=== PATIENT | female | born 1965 | race African-American/Black ===

== ENCOUNTER → 2016-07-30 | Outpatient (CLI) | payer OTHER ==
[2015-06-22 17:43] VITALS: BP 128/76
[~2016-07-30] MED LIST: ALBU8.5H8 IH; BUDE10.2 IH; BUSP15TA PO; CALC-157 PO; CALC1TAB PO; CETI10TA22 PO; CLON1TAB PO; DILT120C80 PO; ESCI20TA PO; FERR325C PO; IPRA4AER IH; LEVO150T5 PO; MAGN400T3 PO; MELO15TA6 PO; MOME17SP NS; MONT10TA9 PO; MORP15TA80 PO; OXYC-328 PO; PANT40TA3 PO; POTA20TA12 PO; TIZA4CAP3 PO
--- NOTE | 2016-07-30 15:51 | RAD ---
Indication: Dyspnea. Time of exam 1543 hours. Correlation is made with prior study from 04/01/2016. FINDINGS: The heart size is normal. The lungs are clear. No pleural effusion or pneumothorax is identified. The pulmonary vascularity is normal. IMPRESSION: No acute abnormality detected.
== END | disposition home or self-care (01) ==
LOC: DXRADRC 15:39
PROVIDERS: ATTEND Physician Assistant
DX: R06.00 Dyspnea, unspecified (principal); Z96.659 Presence of unspecified artificial knee joint
CPT/HCPCS: 71020

== ENCOUNTER → 2016-11-17 | Outpatient (CLI) | payer OTHER ==
[2015-06-22 17:43] VITALS: BP 128/76
[~2016-11-17] MED LIST changes: -ESCI20TA PO; +ESCITALOPRAM OX20 MG PO
--- NOTE | 2016-11-17 16:02 | RAD ---
Exam performed: X-ray lumbar spine. History: History of lumbar surgery in 2011, back pain, no injury. Date of service: 11/17/16. Comparison: None available Findings: Transitional anatomy at the lumbosacral junction. 5 nonrib-bearing vertebral bodies are identified. There is grade 1 anterolisthesis of L4 over L5, the remainder sagittal alignment is preserved. Vertebral body heights are maintained. Narrowing of L4-5 disc space with mild arthritic spurring. No compression fracture. No prevertebral soft tissue swelling. Extensive scattered stool throughout the colon. Bilateral hip arthroplasty. Impression: Degenerative disc disease at L4-5 level with mild spondylotic changes. No acute abnormality seen.
== END | disposition home or self-care (01) ==
LOC: DXRADRC 12:52
PROVIDERS: ATTEND Family Medicine
DX: M51.36 Other intervertebral disc degeneration, lumbar region (principal); M47.896 Other spondylosis, lumbar region; Z98.890 Other specified postprocedural states; Z96.641 Presence of right artificial hip joint; Z96.642 Presence of left artificial hip joint
CPT/HCPCS: 72100

== ENCOUNTER → 2017-07-28 | Outpatient (CLI) | payer OTHER ==
[2015-06-22 17:43] VITALS: BP 128/76
--- NOTE | 2017-07-28 17:06 | RAD ---
EXAM: Abdomen, 2 views. HISTORY: Pain. COMPARISON: None. FINDINGS: Frontal upright and supine views of the abdomen are obtained. There is nonspecific air-filled loops of bowel within the right abdomen. There is gas and stool within the colon. There is no transition point to suggest obstruction. There is no free air. There are bilateral hip arthroplasties. IMPRESSION: Nonspecific bowel gas pattern, without evidence of obstruction. Electronically signed by: Dianne Patterson MD (07/28/2017 5:03 PM) [facility]
== END | disposition home or self-care (01) ==
LOC: RAD 16:17
PROVIDERS: ATTEND Physician Assistant
DX: I10 Essential (primary) hypertension (principal)
CPT/HCPCS: 74021

== ENCOUNTER → 2017-08-20 | Outpatient (CLI) | payer OTHER ==
[2015-06-22 17:43] VITALS: BP 128/76
[~2017-08-20] MED LIST changes: +IOHEXOL 240 MG/ML 50ML VIAL. ONE
[2017-08-20] MEDS: IOHEXOL 300 MG/ML 75 ML VIAL. IV ONE (15:07)
--- NOTE | 2017-08-20 15:41 | RAD ---
CT abdomen and pelvis with contrast History: Abdominal pain, diarrhea, nausea, history of lymphoma of the right neck Technique: After the administration of oral and intravenous contrast, CT imaging was performed of the abdomen and pelvis. Multiplanar images are reviewed. Exposure: One or more of the following individualized dose reduction techniques were utilized for this examination: 1. Automated exposure control 2. Adjustment of the mA and/or kV according to patient size 3. Use of iterative reconstruction technique. Contrast: 75 cc Omnipaque 300 Comparison: None Findings: There is prominent artifact in the pelvis created by bilateral hip arthroplasties. There is a very large (14.1 cm transverse by 11.4 cm AP by 14.3 cm cc) cystic collection in the central and left pelvis extending into the abdomen with inferior extent to the region of urinary bladder although urinary bladder is probably mostly decompressed as suggested on sagittal images. There is some soft tissue density along the medial margin of the collection. In the right pelvis, there is more solid-appearing density probably component of the uterus although more masslike features extending posteriorly on the right. Bowel is not significantly dilated, some displacement of the sigmoid colon and anteriorly by cystic collection. There is also somewhat round density of the right adnexal region about 3.5 cm in size. There is no significant abnormality of the visualized lung bases. There is no significant focal abnormality of the liver, spleen, pancreas, adrenal glands. Both kidneys enhance, mild left hydronephrosis/pelvocaliectasis. Gallbladder is not seen. Common bile duct is estimated at about 0.9 cm. There is retained stool greatest of the right and transverse colon. There is degenerative disc disease with vacuum phenomenon L4-5, disc osteophyte complex and bulge at this level with probable leit-fl-grqokapt left lateral recess stenosis in combination with facet degenerative change. There is also probable at least mild neural foramina compromise bilaterally at L4-5 and on the left at L5-S1. Impression: 1. There is prominent artifact in the pelvis created by bilateral hip arthroplasties. There is a very large cystic collection of the central and left pelvis extending superiorly into the abdomen which extends to the region of the urinary bladder although believed to be separate from urinary bladder. Primary concern would be for cystic adnexal mass including cystadenoma/cystadenocarcinoma. There appears to be associated soft tissue density along the medial margin. In the right pelvis, there is soft tissue density which could be due to component of the uterus and fibroid although nonspecific. There is also somewhat round density in the right adnexal region. Pelvic ultrasound evaluation may be beneficial. There is very mild left hydronephrosis/pelvocaliectasis. Electronically signed by: Duc Cavazos MD (08/20/2017 3:38 PM) [id number]
--- NOTE | 2017-08-21 10:36 | RAD ---
DATE: 08/20/2017 EXAM: MAMMO RUSLAN SCREENING BILATERAL HISTORY: Routine screening COMPARISON: None available This study was interpreted with the benefit of Computerized Aided Detection (CAD). The breast parenchyma is primarily fatty replaced. Breast parenchyma level density A. FINDINGS: 2-D and 3-D tomosynthesis imaging was performed in CC and MLO projections. There is a nodule with a coarse calcification in the upper left breast compatible with a fibroadenoma. No suspicious breast densities or architectural distortion is evident. There are numerous benign type calcifications in both breasts. No suspicious microcalcifications are evident. IMPRESSION: There is no mammographic evidence of malignancy in either breast. BI-RADS CATEGORY: 2 BENIGN FINDING(S) RECOMMENDED FOLLOW-UP: 12M 12 MONTH FOLLOW-UP PQRS compliance statement: Patient information was entered into a reminder system with a target due date for the next mammogram. Mammography is a sensitive method for finding small breast cancers, but it does not detect them all and is not a substitute for careful clinical examination. A negative mammogram does not negate a clinically suspicious finding and should not result in delay in biopsying a clinically suspicious abnormality. "Our facility is accredited by the [employer] Mammography Program."
== END | disposition home or self-care (01) ==
LOC: MAMMO 13:40
PROVIDERS: ATTEND Physician Assistant
DX: Z12.31 Encounter for screening mammogram for malignant neoplasm of breast (principal); M51.36 Other intervertebral disc degeneration, lumbar region; M25.78 Osteophyte, vertebrae; N13.39 Other hydronephrosis; Z96.643 Presence of artificial hip joint, bilateral; Z85.72 Personal history of non-Hodgkin lymphomas
CPT/HCPCS: 74177; 77063; 77067; Q9967

== ENCOUNTER → 2019-03-18 | Outpatient (CLI) | payer MEDICARE ==
[2015-06-22 17:43] VITALS: BP 128/76
[~2019-03-18] MED LIST changes: +ALBU2.5V8 IH; -ALBU8.5H8 IH; -CETI10TA22 PO; +CETI10TA24 PO; -DILT120C80 PO; +DILT120C99 PO; -IOHEXOL 240 MG/ML 50ML VIAL. ONE; -MAGN400T3 PO; +MAGN400T5 PO; +MONT10TA80 PO; -MONT10TA9 PO; -OXYC-328 PO; +OXYC1TAB22 PO
--- NOTE | 2019-03-18 13:32 | RAD ---
Chest radiograph 03/18/2019 12:00 AM INDICATION: Dyspnea, lower chest pain COMPARISON: 07/30/2016 TECHNIQUE: Frontal and lateral views of the chest are provided. FINDINGS: The cardiomediastinal silhouette is within normal limits. There are no pleural effusions. There is no pulmonary vascular congestion. There is no pneumothorax. Bilateral infrahilar patchy interstitial changes are present with bronchial wall thickening. Consideration may be given for bronchitis. No significant osseous abnormality is identified. IMPRESSION: Constellation of findings may be seen with bronchitis. No focal airspace consolidation. Electronically signed by: Carole Soares MD (03/18/2019 1:29 PM) [facility] [place]
--- NOTE | 2019-03-18 13:46 | RAD ---
EXAM: Abdomen, 2 views. HISTORY: Right upper quadrant pain. COMPARISON: CT dated 08/20/2017. FINDINGS: Frontal upright and supine views of the abdomen are obtained. There is gqrb-nj-gjdavztj gas and stool within the colon. There is no evidence of bowel obstruction. There is no free air. There are bilateral hip arthroplasties. There are incidental congenitally nonfused sacral posterior elements. IMPRESSION: Moderate colonic gas and stool. Correlate for constipation. Electronically signed by: Dianne Patterson MD (03/18/2019 1:43 PM) [place] [id number]
== END | disposition home or self-care (01) ==
LOC: PMG 12:21
PROVIDERS: ATTEND Physician Assistant
DX: J98.09 Other diseases of bronchus, not elsewhere classified (principal); R10.11 Right upper quadrant pain; K59.00 Constipation, unspecified
CPT/HCPCS: 71046; 74019

== ENCOUNTER 2021-06-27 16:12 | Emergency (ER) | payer MEDICARE, OTHER ==
[~2021-06-27] VITALS: Ht 162.6 cm; Wt 104.5 kg
[~2021-06-27 16:12] MED LIST changes: -CETI10TA24 PO; +CETI10TA74 PO; +MAGN400T48 PO; -MAGN400T5 PO; -MOME17SP NS; +MOME17SP5 NS
[2021-06-27 16:34] VITALS: BP 128/76
[2021-06-27] MEDS ORDERED: IOHEXOL 350 MG/ML 100 ML VIAL. IV ONE (17:15)
[2021-06-27 17:31] LABS: BASO # 0.1 x10^3/uL (0.0-0.2); BASO % 2 % (0-3); EOS # 0.4 x10^3/uL (0.0-0.7); EOS % 7 % (0-3); HEMATOCRIT 47.1 % (36.0-47.0); HEMOGLOBIN 15.9 g/dL (12.0-15.5); LYMPH # 1.7 x10^3/uL (1.0-4.8); LYMPH % 34 % (24-48); MEAN CORPUSCULAR HEMOGLOBIN 29 pg (25-35); MEAN CORPUSCULAR HGB CONC 34 g/dL (31-37); MEAN CORPUSCULAR VOLUME 85 fL (79-100); MONO # 0.4 x10^3/uL (0.0-1.1); MONO % 9 % (0-9); NEUT # 2.5 x10^3uL (1.8-7.7); NEUT % 49 % (31-73); PLATELET COUNT 274 x10^3/uL (140-400); RED BLOOD COUNT 5.56 x10^6/uL (3.50-5.40); RED CELL DISTRIBUTION WIDTH 14.8 % (11.5-14.5)
--- NOTE | 2021-06-27 17:33 | PHYS DOC ---
Past History Past Medical History: Anemia, Asthma, CHF, Depression, Hypertension, Other Additional Past Medical Histor: no thyroid, chronic pain (MERCEDES YEPEZ MD) Past Surgical History: Cholecystectomy, Knee Replacement, Tubal ligation, Other (MERCEDES YEPEZ MD) Alcohol Use: Occasionally Drug Use: None (MERCEDES YEPEZ MD) General Adult EDM: Chief Complaint: MULTIPLE COMPLAINTS HPI: HPI: Patient is a 56-year-old female coming in for multiple complaints. Patient initially presented to her primary care provider upstairs and decided come downstairs for ER evaluation. Patient states that she has been having headaches, decreased appetite, occasional emesis, diarrhea, and suicidal ideations. Patient states she is concerned that she has been "poisoned" and that there might be some sort of gas coming in through her apartment vents, and fears is carbon oxide poisoning. The patient's who lives in the same home does not have similar symptoms. Patient states that this morning she had a more severe headache and sharp left upper abdominal pains that are still present but not as bad. Patient states that she also has been having disruptions in her sleep-wake cycle and has been not taking her medications at the appropriate time has been missing doses. She is also having dyspnea with exertion, palpitations, and diaphoresis. Patient complaining of worsening left lower leg pain, states she has had 7 knee surgeries and currently has a spacer in her knee. Patient states she has been getting worse since April, 2 months ago, when she was diagnosed with bronchitis and told by her primary care provider she could possibly have had Covid, although she was not tested at that time. Patient was admitted for psychiatric evaluation for 1.5 to 2 weeks and started on medication 2 years ago at [facility] after she tried to overdose on aspirin. Patient states she currently does not have a plan. She states that she has not followed with anybody to manage her psychiatric issues and has not had a medication change in the past 2 years. Patient states her is usually nice but can be verbally and mentally abusive at times. Denies any physical violence in the home. (MERCEDES YEPEZ MD) Review of Systems: Review of Systems: All other systems within normal limits except for as noted in the HPI (MERCEDES YEPEZ MD) Current Medications: Current Meds: Current Medications Medications (Trade) Dose Ordered Sig/Jenna Start Time Stop Time Status Last Admin Dose Admin Iohexol (Omnipaque 350 Mg/ml) 100 ml 1X ONCE 06/27/21 17:15 06/27/21 17:16 DC (MERCEDES YEPEZ MD) Allergies: Allergies: Allergies Coded Allergies Type Severity Reaction Last Updated Verified hydromorphone Allergy Unknown 06/22/15 Yes procaine Allergy Unknown 06/22/15 Yes vancomycin Allergy Unknown 06/22/15 Yes (MERCEDES YEPEZ MD) Physical Exam: PE: Constitutional: Well developed, well nourished, no acute distress, non-toxic appearance. [] HENT: Normocephalic, atraumatic, bilateral external ears normal, nose normal. [] Eyes: PERRLA, conjunctiva normal, no discharge. [] Neck: No rigidity, supple, no stridor. [] Cardiovascular: Regular rate and rhythm, brisk cap refill [] Lungs & Thorax: Non labored symmetric respirations, no tachypnea or respiratory distress [] Abdomen: Soft, nondistended. Skin: Warm, dry, no erythema, no rash. [] Back: Unremarkable Extremities: No deformities, range of motion grossly intact, no lower extremity edema [] Neurologic: Alert and oriented X 3, no focal deficits noted. [] Psychologic: Anxious, suicidal thoughts, appropriate speech pattern (MERCEDES YEPEZ MD) Current Patient Data: Labs: Laboratory Tests Test 06/27/21 17:10 POC Venous pH 7.42 (7.32-7.42) POC Venous pCO2 43 mmHg (41-51) POC Venous pO2 18 mmHg (20-40) L Venous Blood HCO3 28 mmol/L (24-28) POC Venous O2 Saturation ([place]) 27 % POC FiO2 21 Vital Signs: Vital Signs Date Time Temp Pulse Resp B/P (MAP) Pulse Ox O2 Delivery O2 Flow Rate FiO2 06/27/21 16:34 88 18 128/76 (93) 99 (MERCEDES YEPEZ MD) EKG: EKG: Normal sinus rhythm, heart rate 88 beats minute, normal axis, baseline sort of obscured by artifact no STEMI [] (MERCEDES YEPEZ MD) Radiology/Procedures: Radiology/Procedures: [] (MERCEDES YEPEZ MD) Heart Score: C/O Chest Pain: N/A Risk Factors: Risk Factors: DM, Current or recent (<one month) smoker, HTN, HLP, family histo ry of CAD, obesity. Risk Scores: Score 0 - 3: 2.5% MACE over next 6 weeks - Discharge Home Score 4 - 6: 20.3% MACE over next 6 weeks - Admit for Clinical Observation Score 7 - 10: 72.7% MACE over next 6 weeks - Early Invasive Strategies (MERCEDES YEPEZ MD) C/O Chest Pain: No (JANICE GALE MD) Course & Med Decision Making: Course & Med Decision Making Care transitioned at shift change. Pending labs and imaging, after medically cleared will have PAT consultation (MERCEDES YEPEZ MD) Course & Med Decision Making Patient care handed off to me at checkout pending imaging. Patient awake alert and oriented in no acute distress. Vital signs nonconcerning. Laboratory analysis notable for hypomagnesemia which was replaced in the emergency department. Imaging notable for large left adnexal cystic mass which has grown in size since 2018. Discussed this with patient, who stated she was unaware of this. Call Dr. Kilpatrick the [employer]MI[employer] at [place] to discuss patient and was advised to have her follow-up in his clinic on Thursday. Given patient contact information for Dr. Kilpatrick and advised to call first thing Thursday morning. Advised to continue eating at least 3 nutritious meals a day and taking her vitamins. Advised on symptom management at home for her abdominal discomfort and occasional headaches. Advised on hydration. Advised also follow-up with her primary care physician first thing Thursday to update on her ED visit and diagnoses. Gave strict return precautions to the ED. Patient grateful, verbalized understanding and agreed with plan of discharge. (JANICE GALE MD) Dragon Disclaimer: Dragon Disclaimer: This electronic medical record was generated, in whole or in part, using a voice recognition dictation system. (MERCEDES YEPEZ MD) Departure Departure: Impression: Primary Impression: Adnexal mass Additional Impressions: Adnexal cyst Hypomagnesemia Headache Disposition: HOME / SELF CARE / HOMELESS Condition: STABLE Referrals: PAULETTE CHAPMAN (PCP) Patient Instructions: General Headache Without Cause, Hypomagnesemia, Ovarian Cyst Additional Instructions: Thank you for coming into the emergency department tonight and allowing us to take care of you. Please read all the attached information carefully to go over things we discussed. You can use Tylenol, ibuprofen and Benadryl as needed at home as we discussed for your symptoms. Please be sure to eat at least 3 nutritious meals daily, stay well-hydrated and take your vitamins as we discussed. Please follow-up first thing Thursday morning with your primary care physician to update on your ED visit and diagnoses and set up a follow-up as soon as possible. As we discussed I talked to Dr. Kilpatrick the [employer]GAN[employer] CHEMI[employer] TE[employer]ER at [facility] [place] and he would like you to call his clinic first thing Thursday morning and set up a follow-up as soon as possible. His number is [phone]. Please be sure to call first thing Thursday morning and set up a follow-up as soon as possible to discuss surgical options for resection of your mass. Please come back to the emergency department immediately with new or concerning symptoms as discussed. MERCEDES YEPEZ MD Jun 27, 2021 17:33 JANICE GALE MD Jun 27, 2021 19:43
[2021-06-27 17:53] LABS: INFLUENZA A PATIENT NEGATIVE (NEGATIVE); INFLUENZA B PATIENT NEGATIVE (NEGATIVE)
[2021-06-27 18:04] LABS: CREATININE 1.2 mg/dL (0.6-1.0); GFR 55.8; POTASSIUM 4.5 mmol/L (3.5-5.1)
[2021-06-27 18:16] LABS: ALBUMIN 4.2 g/dL (3.4-5.0); MAGNESIUM 1.7 mg/dL (1.8-2.4); TOTAL BILIRUBIN 1.1 mg/dL (0.2-1.0); TOTAL PROTEIN 8.5 g/dL (6.4-8.2)
--- NOTE | 2021-06-27 18:36 | RAD ---
STUDY: CT head without contrast INDICATION: Headaches. COMPARISON: None. TECHNIQUE: Axial CT imaging through the head without the use of intravenous contrast. Sagittal and co orlando reformats were obtained. One or more of the following individualized dose reduction techniques were utilized for this examinat ion: 1. Automated exposure control 2. Adjustment of the mA and/or kV according to patient size 3. Use of iterative reconstruction technique. FINDINGS: No acute intracranial hemorrhage. Arnold-white matter differentiation is maintained. No mass effect, mi dline shift or hydrocephalus. Unremarkable orbits, scalp and calvarium noting mild frontal hyperostosis. Partial opacification of t he right maxillary sinus included in the hzbfo-me-zwow. Normally aerated mastoid air cells. Scattered benign dural calcifications. IMPRESSION: No acute intracranial abnormality by CT. Electronically signed by: AB GUDINO MD (06/27/2021 6:34 PM) [facility]
--- NOTE | 2021-06-27 18:38 | EKG ---
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
--- NOTE | 2021-06-27 18:39 | RAD ---
Exam: CT of chest, abdomen and pelvis with contrast INDICATION: Dyspnea, left upper quadrant abdominal pain TECHNIQUE: Sequential axial images through the chest, abdomen and pelvis obtained following the admin istration of 100 mL of Isovue-370 IV contrast. Sagittal and coronal reformatted images were reconstru cted from the axial data and reviewed. Exposure: One or more of the following in the visualized dose reduction techniques were utilized for this examination: 1. Automated exposure control 2. Adjustment of the MA and/or KV according to patient size 3. Use of iterative of reconstructive technique Comparisons: 08/20/2017 FINDINGS: No enlarged mediastinal lymph nodes are identified. Heart size is normal. No pericardial effusion. Mild coronary calcium lesions. Thoracic aorta has norm al course and caliber. Pulmonary artery is not enlarged. No pulmonary embolus identified within the m ain, lobar or segmental pulmonary arteries. Airways are patent. No consolidation or pneumothorax. No suspicious lung nodules. No pleural effusion or thickening. Liver, spleen, pancreas and adrenals are unremarkable. Gallbladder surgically absent. No perinephric inflammation or hydronephrosis. No renal or ureteral calculi are identified. Bladder is decompressed not well evaluated. Uterus is not enlarged. There is a large cystic lesion oc cupying the majority of the pelvis which measures approximately 14.9 x 10.1 cm x 16.4 cm. Moderate amount of stool is noted in the colon. Appendix is not identified. No free intra-abdominal a ir or fluid. No obstruction. Abdominal aorta has a normal course and caliber. Abdominal vasculature is patent. No enlarged intra-abdominal lymph nodes are identified. No suspicious osseous lesions or acute fractures. There is a partially calcified soft tissue density lesion in the subcutaneous fat of the left upper quadrant which measures approximately 3.3 x 1.5 cm, similar prior study. IMPRESSION: 1. Interval increased size of the cystic mass at the left adnexa compared to study in 2018. This is favored represent ovarian cystic lesion with similar differential the prior exam. Gynecologic/oncolog ic consultation is recommended if not already performed. 2. Stable soft tissue lesion in the subcutaneous fat of the anterior abdominal wall in the left uppe r quadrant. This is nonspecific in etiology. 3. No pulmonary embolus identified within the main, lobar or segmental pulmonary arteries. Electronically signed by: Domo Umaña MD (06/27/2021 6:36 PM) [facility]
[2021-06-27] MEDS ORDERED: diphenhydrAMINE 50 MG/ML VIAL IVP ONE (18:45)
[2021-06-27] MEDS ORDERED: ACETAMINOPHEN 500 MG TABLET PO ONE (18:45)
[2021-06-27] MEDS ORDERED: MAGNESIUM SULFATE 2GM 50 ML IV ONE (18:45)
[2021-06-27] MEDS ORDERED: KETOROLAC 15 MG/ML VIAL. IVP ONE (18:45)
[2021-06-27 18:50] LABS: BACTERIA,URINE 0 /HPF (0-FEW); CLARITY,URINE CLEAR; COLOR,URINE YELLOW; GLUCOSE,URINE NEG (NEG); NITRITE,URINE NEG (NEG); RBC,URINE OCC /HPF (0-2); SQUAMOUS EPITHELIAL CELL,UR FEW /LPF; UROBILINOGEN,URINE 0.2 mg/dL (0.2 mg/dL); WBC,URINE OCC /HPF (0-4)
[2021-06-27 18:56] LABS: AMPHETAMINE/METHAMPHETAMINE NEG (NEG); BARBITURATES NEG (NEG); BENZODIAZEPINES NEG (NEG); CANNABINOIDS POS (NEG); COCAINE NEG (NEG); METHADONE NEG (NEG); OPIATES POS (NEG); PHENCYCLIDINE NEG (NEG)
== END 2021-06-27 20:22 | disposition home or self-care (01) ==
LOC: ER 16:12
DX: R19.09 Other intra-abdominal and pelvic swelling, mass and lump (principal); R45.851 Suicidal ideations; E83.42 Hypomagnesemia; R51.9 Headache, unspecified; Z20.822 Contact with and (suspected) exposure to COVID-19
CPT/HCPCS: 70450; 71275; 74177; 80053; 80307; 81001; 82803; 83690; 83735; 83880; 84100; 84443; 84484; 85025; 85379; 87086; 87428; 93005; 96365; 96375; 99285; C9803; G0480; J1200; J1885; J3475; Q9967; U0003